=== PATIENT | male | born 1995 | race Caucasian/White ===

== ENCOUNTER 2024-09-12 22:40 | Emergency (ER) | payer MEDICAID ==
[~2024-09-12] VITALS: Ht 182.9 cm; Wt 79.5 kg
[2024-09-12 22:51] VITALS: TEMP 98.2
[2024-09-13] MEDS ORDERED: DIAZ2 PO (00:17)
[2024-09-13 00:24] VITALS: BP 141/93; PULSE 93; RESP 16; O2SAT 98
[2024-09-13] MEDS: DIAZEPAM 2 MG TABLET PO ONE (00:25)
== END 2024-09-13 00:38 | disposition home or self-care (01) ==
LOC: EMS 22:40
DX: F41.9 Anxiety disorder, unspecified (principal); Z76.0 Encounter for issue of repeat prescription
CPT/HCPCS: 99283